=== PATIENT | female | born 1995 | race Caucasian/White ===

== ENCOUNTER 2017-05-02 20:40 | Emergency (ER) | payer OTHER ==
[~2017-05-02] VITALS: Ht 167.6 cm; Wt 97.3 kg
[~2017-05-02 20:40] MED LIST: ADDERALL30 MG PO; NORTREL 35 MCG-1 TA1 PO; VENTOLIN0.09 MG IH
[2017-05-02 20:45] VITALS: BP 133/84; TEMP 98.7
[2017-05-02] MEDS ORDERED: DASETTA 1/35 351 TAB PO (20:49)
[2017-05-02] MEDS ORDERED: EFFEXOR 75M75 MG/TAB PO (20:49)
[2017-05-02 21:49] LABS: BASO % 0.3 % (0.0-2.0); EOS # 0.1 (0.0-0.7); GRAN # 5.7 (1.4-6.5); GRAN % 56.6 % (42.2-75.2); HEMATOCRIT 41.1 % (37.0-47.0); HEMOGLOBIN 13.3 g/dl (12.5-16.0); LYMPH # 3.3 (1.2-3.4); LYMPH % 33.2 % (20.0-51.0); MEAN CELL VOLUME 88 fl (80.0-100.0); MEAN CORPUSCULAR HEMOGLOBIN 28 pg (27.0-31.0); MEAN CORPUSCULAR HGB CONC 32 g/dl (33.0-37.0); MEAN PLATELET VOLUME 8.9 fl (7.4-10.4); MONO # 0.9 (0.1-0.6); MONO % 8.7 % (1.7-9.3); PLATELET COUNT 372 K/mm3 (130-400); RED BLOOD COUNT 4.69 M/mm3 (4.10-5.30)
[2017-05-02 22:53] LABS: TROPONIN-I < 0.012 ng/mL (0.000-0.034)
[2017-05-02 22:54] LABS: ADJUSTED CALCIUM 9.6 mg/dL (8.4-10.2); ALBUMIN 3.8 gm/dL (3.5-5.0); BLOOD UREA NITROGEN 9 mg/dL (7-17); CALCIUM 9.4 mg/dL (8.4-10.2); CARBON DIOXIDE 24 mmol/L (22-30); CHLORIDE 104 mmol/L (98-107); CREATININE, serum 0.68 mg/dL (0.52-1.25); GLUCOSE 84 mg/dL (74-106); SODIUM 138 mmol/L (137-145); TOTAL PROTEIN 6.7 gm/dL (6.4-8.2)
[2017-05-02 22:55] LABS: ALANINE AMINOTRANSFERASE 23 U/L (9-52); ALKALINE PHOSPHATASE 76 U/L (50-136); ANION GAP 10 mmol/L (7-16); BILIRUBIN,TOTAL 0.3 mg/dL (0.0-1.0)
[2017-05-02 23:52] VITALS: PULSE 81
== END 2017-05-02 23:53 | disposition home or self-care (01) ==
LOC: COL.ER 20:40
PROVIDERS: Physician Assistant
DX: R07.89 Other chest pain (principal); J45.909 Unspecified asthma, uncomplicated; F41.9 Anxiety disorder, unspecified
CPT/HCPCS: J1885

== ENCOUNTER → 2018-07-09 | Outpatient (CLI) | payer OTHER ==
[~2018-07-09] MED LIST changes: +DASETTA 1/35 351 TAB PO; +EFFEXOR 75M75 MG/TAB PO
== END ==
LOC: MC.RAD 14:11
DX: N64.4 Mastodynia (principal)

== ENCOUNTER 2019-04-07 22:02 | Emergency (ER) | payer OTHER ==
[~2019-04-07] VITALS: Ht 167.6 cm; Wt 112.3 kg
[2019-04-08] VITALS: BP 152/79; PULSE 108; TEMP 98.6
== END 2019-04-08 | disposition home or self-care (01) ==
LOC: COL.ER 22:02
DX: H57.12 Ocular pain, left eye (principal); Z88.5 Allergy status to narcotic agent